=== PATIENT | male | born 1950 | race Caucasian/White ===

== ENCOUNTER 2018-06-07 06:09 | Inpatient (IN) ==
[2018-06-04 13:21] LABS: Appearance,Urine CLEAR; Bilirubin,Urine NEG (NEG); Color,Urine STRAW; Glucose,Urine (UA) NEGATIVE (NEG); Leukocyte Esterase,Urine NEG /uL (NEG); Protein,Urine NEG (NEG); Specific Gravity,Urine 1.014 (1.000-1.035); Urine Blood NEG mg/dL (<0.03); Urobilinogen,Urine NEG (NEG)
[2018-06-04 14:49] LABS: Basophils # (Auto) 0.1 K/mcL (0.0-0.3); Basophils % (Auto) 0.7 % (0.0-2.0); Eosinophils # (Auto) 0.1 K/mcL (0.0-0.7); Granulocytes % (Auto) 59.1 % (38.0-78.0); Lymphocytes # (Auto) 2.1 K/mcL (1.5-4.8); Lymphocytes % (Auto) 29.8 % (15.5-49.0); Mean Cell Volume 93.6 fL (80.0-100.0); Mean Corpuscular HGB Conc 33.3 g/dL (31.0-36.0); Mean Corpuscular Hemoglobin 31.1 pg (26.0-34.0); Monocytes # (Auto) 0.6 K/mcL (0.1-0.9); Monocytes % (Auto) 8.4 % (1.0-12.0); Platelet Count 315 K/mcL (140-440); RBC 5.33 M/mcL (4.50-5.90); Red Cell Distribution Width 13.7 % (11.5-14.5)
[2018-06-04 15:17] LABS: Blood Urea Nitrogen 20 mg/dl (8-23)
[2018-06-07] MEDS ORDERED: ceFAZolin 1 GM VIAL IV SCH (07:00)
[2018-06-07] MEDS ORDERED: oxyCODONE 10 MG TAB.ER.12H PO SCH (07:00)
[2018-06-07] MEDS ORDERED: CELECOXIB 200 MG CAPSULE PO SCH (07:00)
[2018-06-07] MEDS ORDERED: 0.9 % SODIUM CHLORIDE 9 ML, KETOROLAC 30 MG, ROPIVACAINE HCL/PF 49.5 ML, EPINEPHrine 0.... IJ SCH (07:00)
[2018-06-07] MEDS ORDERED: ACETAMINOPHEN 500 MG TABLET PO SCH (07:00)
[2018-06-07] MEDS ORDERED: PREGABALIN 75 MG CAPSULE PO SCH (07:00)
[2018-06-07] MEDS ORDERED: diphenhydrAMINE 50 MG/ML VIAL IV ONE (09:00)
[2018-06-07] MEDS ORDERED: PROPOFOL 200 MG/20 ML VIAL IV ONE (09:00)
[2018-06-07] MEDS ORDERED: TRANEXAMIC ACID 1,000 MG/10 ML VIAL IV ONE ×2 (09:00→10:16)
[2018-06-07] MEDS ORDERED: fentaNYL 250 MCG/5 ML VIAL IV ONE (09:00)
[2018-06-07] MEDS ORDERED: MIDAZOLAM 5 MG/5 ML VIAL IV ONE (09:00)
[2018-06-07] MEDS ORDERED: DEXAMETHASONE 10 MG/ML VIAL IV ONE (09:00)
[2018-06-07] MEDS ORDERED: GLYCOPYRROLATE 0.2 MG/ML VIAL IV ONE (09:00)
[2018-06-07] MEDS ORDERED: LIDOCAINE HCL/PF 100 MG/5 ML SYRINGE IV ONE (09:00)
[2018-06-07] MEDS ORDERED: ONDANSETRON 4 MG/2 ML VIAL IV ONE (09:00)
[2018-06-07] MEDS ORDERED: ROPIVACAINE HCL/PF 30 ML VIAL IJ ONE (09:00)
[2018-06-07] MEDS ORDERED: ePHEDrine 50 MG/ML AMPUL IV ONE (09:00)
[2018-06-07] MEDS ORDERED: SUCCINYLCHOLINE 20 MG/ML ML IV ONE (09:00)
[2018-06-07] MEDS ORDERED: GENTAMICIN SULFATE 800 MG/20 ML VIAL IR ONE (09:30)
[2018-06-07] MEDS ORDERED: IPRATROPIUM/ALBUTEROL 3 ML AMPUL.NEB NEB PRN (09:58)
[2018-06-07] MEDS ORDERED: PROMETHAZINE 25 MG/ML VIAL IV PRN (09:58)
[2018-06-07] MEDS ORDERED: fentaNYL 100 MCG/2 ML VIAL IV PRN (09:58)
[2018-06-07] MEDS ORDERED: NALOXONE HCL 0.4 MG/ML VIAL IV PRN (09:58)
[2018-06-07] MEDS ORDERED: BENZOCAINE/MENTHOL 1 LOZENGE PO PRN ×2 (09:58→10:16)
[2018-06-07] MEDS ORDERED: FLUMAZENIL 0.1 MG/ML ML IV PRN (09:58)
[2018-06-07] MEDS ORDERED: MEPERIDINE 25 MG/ML SYRINGE IV PRN (09:58)
[2018-06-07] MEDS ORDERED: KETOROLAC 15 MG/ML VIAL IV PRN ×2 (09:58→10:16)
[2018-06-07] MEDS ORDERED: diphenhydrAMINE 50 MG/ML VIAL IV PRN (09:58)
[2018-06-07] MEDS ORDERED: HYDROmorphone 2 MG/ML VIAL IV PRN ×2 (09:58→10:16)
[2018-06-07] MEDS ORDERED: LACTATED RINGERS 250 ML IV PRN (09:58)
[2018-06-07] MEDS ORDERED: ONDANSETRON 4 MG/2 ML VIAL IV PRN ×2 (09:58→10:16)
[2018-06-07] MEDS ORDERED: LACTATED RINGERS 1,000 ML IV SCH (10:00)
[2018-06-07] MEDS ORDERED: TEMAZEPAM 15 MG CAPSULE PO PRN (10:16)
[2018-06-07] MEDS ORDERED: MAGNESIUM HYDROXIDE 30 ML ORAL.SUSP PO PRN (10:16)
[2018-06-07] MEDS ORDERED: POLYETHYLENE GLYCOL 3350 17 GM PACKET PO PRN (10:16)
[2018-06-07] MEDS ORDERED: FLEETS ADULT ENEMA PR PRN (10:16)
[2018-06-07] MEDS ORDERED: IBUPROFEN 400 MG TABLET PO PRN (10:16)
[2018-06-07] MEDS ORDERED: BISACODYL 10 MG SUPP.RECT PR PRN (10:16)
--- NOTE | 2018-06-07 10:16 | Brief Operative Note ---
Date of procedure: 06/07/18 Pre-op diagnosis: Right shoulder rca Post-op diagnosis: same Procedure: right shoulder reverse tsa Grafts/Implants: Yes Anesthesia: DEVENDRA Surgeon: Wyatt Weston Surgical Brace Maker: James Castellanos Estimated blood loss (cc): 20 Specimens Removed/Pathology: none sent Condition: stable Disposition: PACU
--- NOTE | 2018-06-07 10:44 | Operative Note ---
DATE OF OPERATION: 06/07/2018 PREOPERATIVE DIAGNOSIS: Right shoulder rotator cuff arthropathy. POSTOPERATIVE DIAGNOSIS: Right shoulder rotator cuff arthropathy. PROCEDURE: Right reverse total shoulder. SURGEON: Wyatt Weston MD GIN POLE OPERATOR: James Castellanos PA-C ANESTHESIA: General LMA anesthesia. COMPLICATIONS: None. DESCRIPTION OF PROCEDURE: The patient was brought to the operating room and put to sleep with general LMA anesthesia. Once asleep, the patient had the right shoulder sterilely prepped and draped in the usual sterile fashion. Preop antibiotics and tranexamic had been given. We made a deltopectoral approach after placing the Ioban on the skin. We identified the interval and retracted the deltoid laterally with the cephalic vein, released the subscap musculature and placed an anterior retractor. We dislocated the humeral head after releasing the capsule inferiorly identifying a tear of the supraspinatus and absent of the biceps tendon. We then made our cut at 20 degrees of retroversion using the guide of the humeral neck. Once we made this cut we irrigated thoroughly and then subluxed the head posteriorly, placed retractor on the anterior glenoid and superiorly. We then performed a 360 degree capsule release around the glenoid. Once done, we then placed a pin centrally in the glenoid and placed the glenoid. We reamed to a depth of 40, placed a 40 mm central screw and the metaglene. We then drilled 3 holes placing 28, 36, and 20 mm screws. They gave excellent purchase. The patient tolerated this well. There was no complication. The bleeding surface on the glenoid side was in good condition. We placed a 36 mm glenosphere with 2 mm of offset and 2 mm of the eccentricity. This was positioned and tapped into place. We then prepared the humerus. This was reamed up to the size 14. We implanted a 13 stem and trialed this with 20 degrees retroversion. The standard thickness poly was a little loose but we then cemented into place the 13 stem with cement distally, proximal porous ingrowth and then we placed a 6 mm poly and countersunk the stem slightly. The patient tolerated this well. This was easily reduced. We took the shoulder through the range of motion-very stable. We irrigated thoroughly once more and inspected the cephalic vein which was intact. We then closed the interval with 2-0 Vicryl and Stratafix, and skin was closed with adhesive closure and 2-0 Vicryl. The patient tolerated this well without complication. Sterile bandage was applied and a Donjoy sling was fitted and given to the patient at the end of the case. [facility] Job ID: [id number] Doc ID: [id number] Wyatt Weston MD
--- NOTE | 2018-06-07 11:33 | XRay Report ---
HISTORY: Postop right shoulder arthroplasty FINDINGS: There is a well-positioned reverse total shoulder prosthesis. No fracture is present and there are no abnormal soft tissue calcifications around the joint. The acromioclavicular joint is widened. This may be from prior separation or surgery. IMPRESSION: Well-positioned right shoulder prosthesis Interpreted and Authenticated by: Edmund Casarez 06/07/18
[2018-06-07] MEDS: 0.45 % SODIUM CHLORIDE 1,000 ML IV SCH ×2 (11:59→21:58)
[2018-06-07] MEDS: ceFAZolin 1 GM VIAL IV SCH ×2 (13:47→21:52)
[2018-06-07] MEDS: 0.9 % SODIUM CHLORIDE 10 ML SYRINGE IV SCH ×2 (14:01→21:59)
[2018-06-07] MEDS ORDERED: SENNOSIDES 1 TABLET PO SCH (21:00)
[2018-06-07] MEDS: DOCUSATE SODIUM 100 MG CAPSULE PO SCH (21:52)
[2018-06-07] MEDS: oxyCODONE/APAP 5/325MG TABLET PO PRN (22:06)
[2018-06-08] MEDS: oxyCODONE/APAP 5/325MG TABLET PO PRN ×2 (03:37→08:58)
[2018-06-08] MEDS: 0.9 % SODIUM CHLORIDE 10 ML SYRINGE IV SCH (05:00)
[2018-06-08] MEDS: 0.45 % SODIUM CHLORIDE 1,000 ML IV SCH (05:37)
--- NOTE | 2018-06-08 07:23 | Orthopedic Progress Note ---
Subjective Patient information: Note initiated : 06/08/18 at 7:22 am Service Date, if different from initiated Date: [] Patient: Quique West 67 y/o M admitted on 06/07/18 for Right Reverse Total Shoulder Arthroplasty with . Chief Complaint: [Pt is stable this morning on post operative day 2 without any significant concerns or complaints. Patients vital signs have remained stable. Patients dressing is dry and is grossly instact from a neurovascular and motor standpoint. Patients 10 point ROS is otherwise negative. ] Objective Vital signs: Vital Signs Temp Pulse Resp BP Pulse Ox 06/08/18 06:57 84 16 93 06/08/18 06:54 84 06/08/18 03:59 97.9 F 86 12 126/82 92 06/07/18 23:55 97.6 F 97 H 12 126/85 91 06/07/18 20:00 97.6 F 109 H 12 143/87 94 06/07/18 14:58 97.8 F 16 119/83 93 06/07/18 13:58 125/80 94 06/07/18 13:28 131/80 94 06/07/18 12:58 133/85 94 06/07/18 12:43 136/87 94 06/07/18 12:28 94 06/07/18 12:13 130/83 95 06/07/18 11:58 125/80 95 06/07/18 11:51 97.1 F 102 H 15 122/56 94 06/07/18 11:42 99 H 18 136/74 93 06/07/18 11:27 98 H 14 130/78 92 06/07/18 11:12 85 14 108/60 97 06/07/18 10:57 97.0 F 79 17 100/50 96 06/07/18 07:32 98.7 F 18 127/80 96 Intake and Output 06/07/18 06/08/18 06/08/18 21:59 05:59 13:59 Intake Total 1798 / 1798 400 / 400 Output Total 700 / 700 1575 / 1575 Balance 1098 / 1098 -1175 / -1175 Intake: IV 998 / 998 Sodium Chloride 0.45% 1,000 ml 998 / 998 @ 100 mls/hr IV .Q10H [facility] Rx#: [id number] Oral 800 / 800 400 / 400 Output: Void Amount 700 / 700 1575 / 1575 Other: Urine Appearance Clear Clear Urine Color Dark Yellow Bright Yellow Urine Odor Strong # Voids 1 1 Weight 226 lb Intake & Output: Intake & Output 06/07/18 06/08/18 06/08/18 21:59 05:59 13:59 Intake Total 1798 / 1798 400 / 400 Output Total 700 / 700 1575 / 1575 Balance 1098 / 1098 -1175 / -1175 Weight 226 lb Intake: IV 998 / 998 Sodium Chloride 0.45% 1,000 ml 998 / 998 @ 100 mls/hr IV .Q10H [facility] Rx#: [id number] Oral 800 / 800 400 / 400 Output: Void Amount 700 / 700 1575 / 1575 Other: Urine Appearance Clear Clear Urine Color Dark Yellow Bright Yellow Urine Odor Strong # Voids 1 1 Incision: Yes healing Incision clean and dry: Yes Dressing: Yes clean, Yes dry Weight bearing status: full Neurological exam IM: Yes motor sensory intact, Yes neurovascular intact - Labs CBC & BMP: 06/04/18 11:20 06/04/18 11:20 Labs: 06/04/18 11:20 Hgb 16.6 H Hct 49.9 Assessment and Plan (1) Hx of total shoulder replacement The patient has been educated regarding dressing care, Physical Therapy recommendations, home exercises, restrictions, and follow up appointments. The patient has had all necessary DME prescribed. The patient has remained relatively stable during their hospital course. Leave Dermabond patch intact until followup Status: Acute
--- NOTE | 2018-06-08 07:26 | Discharge Summary ---
Ortho Discharge - TSA - Patient Instructions Diet: Regular Diet Activity: activity as tolerated, weight bearing as tolerated Total Shoulder Protocol: Leave immobilizer in place except for bathing and ROM. Abduction pillow. Continue to wear sling until seen by physician. Codman Pendulum : These exercises use momentum produced by your body to move your shoulder joint. Bend your knees and shift your weight to your front leg, then back, allowing your arm to swing in the same directions. Using the same technique, alternately shift your weight between your right and left legs, allowing your arm to swing from side to side. These exercises are also performed in counterclockwise and clockwise circular motions. Typically these exercises are performed several times per day, for a set number repetitions or minutes, such as 20 times in a row or 5 minutes at a time. Dressing Care: May shower in 2 days - Problem Maintenance (1) Hx of total shoulder replacement Status: Acute - Follow Up Plan Follow Up Appointments: James Castellanos PA-C [Physician Surgery Attendant] - 06/22/18 10:40 am Disposition: Home, Self-Care Prognosis: Good Rehab Potential: Good I certify that the patient requires SNF services: No Overall status at discharge: patient is progressing back to baseline - Orders For Discharge Prescriptions: Docusate Sodium [Colace] 100 mg PO BID #60 cap oxyCODONE/APAP [Percocet 5-325 mg] 1 - 2 tab PO Q4HP PRN #75 tab PRN Reason: Pain Level 3-6
[2018-06-08] MEDS: DOCUSATE SODIUM 100 MG CAPSULE PO SCH (08:59)
[2018-06-08] MEDS ORDERED: SIMVASTATIN 20 MG TABLET PO SCH (09:00)
[2018-06-08] MEDS ORDERED: HYDROCHLOROTHIAZIDE 12.5 MG CAPSULE PO SCH (09:00)
[2018-06-08] MEDS ORDERED: LISINOPRIL 10 MG TABLET PO SCH ×2 (09:00)
[2018-06-08] MEDS ORDERED: ASPIRIN 325 MG ENTERIC COATED TABLET PO SCH (09:00)
== END 2018-06-08 10:23 | disposition home or self-care (01) | DRG 483 ==
LOC: MEDSUR 06:09
PROVIDERS: ADMIT Orthopaedic Surgery; ATTEND Orthopaedic Surgery